=== PATIENT | male | born 1995 | race Caucasian/White ===

== ENCOUNTER 2017-04-29 22:10 | Emergency (ER) | payer OTHER ==
[~2017-04-29] VITALS: Ht 172.7 cm; Wt 86.5 kg
[2017-04-29 22:13] VITALS: Ht 172.7 cm; Wt 86.5 kg
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
[2017-04-30] MEDS ORDERED: IBUP800T25 PO (02:18)
[2017-04-30] MEDS ORDERED: CYCL-319 PO (02:19)
[2017-04-30 02:43] VITALS: BP 129/73; PULSE 66; RESP 16; TEMP 98.2
== END 2017-04-30 02:45 | disposition home or self-care (01) ==
LOC: FTE 22:10
DX: M62.838 Other muscle spasm (principal)
CPT/HCPCS: 99283